=== PATIENT | male | born 1975 | race Caucasian/White ===

== ENCOUNTER 2023-10-27 08:29 | Outpatient (CLI) | payer MEDICAID, OTHER ==
[2023-10-27] MEDS ORDERED: iohexol 300mg/ml 100ml inj. ONE (08:37)
== END 2023-10-27 23:59 | disposition home or self-care (01) ==
LOC: RAD 08:29
PROVIDERS: ATTEND Internal Medicine Infectious Disease
DX: K65.1 Peritoneal abscess (principal); R19.09 Other intra-abdominal and pelvic swelling, mass and lump; Z98.890 Other specified postprocedural states
CPT/HCPCS: 72193; J3490; Q9967

== ENCOUNTER 2024-09-20 18:08 | Inpatient (IN) | payer MEDICAID, OTHER ==
[~2024-09-20] VITALS: Ht 188 cm; Wt 81.8 kg
[2024-09-20 19:12] LABS: BASOPHILS % (AUTO) 0.1 % (0-1); EOSINOPHILS % (AUTO) 0 % (0-6); HEMATOCRIT 37.4 % (42.0-52.0); HEMOGLOBIN 12.3 g/dl (14.0-17.9); LYMPHOCYTES # (AUTO) 1.3 X10'3 (1.1-4.8); LYMPHOCYTES % (AUTO) 8.1 % (21-51); MEAN CORPUSCULAR HGB CONC 32.9 g/dL (33.0-36.5); MEAN CORPUSCULAR VOLUME 81.9 FL (78-98); MEAN PLATELET VOLUME 7.4 FL (7.4-10.4); MONOCYTES # (AUTO) 1.6 X10'3 (0-0.9); MONOCYTES % (AUTO) 10.2 % (2-12); NEUTROPHILS % (AUTO) 81.6 % (42-75); PLATELET COUNT 242 X10'3 (140-440); RED BLOOD COUNT 4.57 X10'6 (4.70-6.10); RED CELL DISTRIBUTION WIDTH 17.7 % (11.5-14.5)
[2024-09-20 19:29] LABS: ALANINE AMINOTRANSFERASE 191 U/L (12-78); ALBUMIN 3.7 G/DL (3.4-5.0); ALKALINE PHOSPHATASE 188 IU/L (46-116); ANION GAP 7 (8-16); ASPARTATE AMINO TRANSFERASE 133 U/L (10-37); BILIRUBIN,TOTAL 1.7 MG/DL (0.1-1.0); BLOOD UREA NITROGEN 11 MG/DL (7-18); BUN/CREATININE RATIO 7.3 (10.0-20.0); CALCIUM 8.2 MG/DL (8.5-10.1); CHLORIDE 104 MMOL/L (99-107); GLUCOSE 108 MG/DL (70-104); POTASSIUM 3.7 MMOL/L (3.5-5.1); SODIUM 140 MMOL/L (135-145); TOTAL CARBON DIOXIDE 28.9 MMOL/L (24-32); TOTAL PROTEIN 7.4 G/DL (6.4-8.2); eCRCL 70 ML/MIN; eGFR 50 ML/MIN
[2024-09-20 19:33] LABS: PRO BRAIN NATRIURETIC PEPTIDE 1706 PG/ML (0-125)
[2024-09-20] MEDS ORDERED: AMLO5TAB16 (19:34)
[2024-09-20] MEDS ORDERED: OMEP40CA21 (19:34)
[2024-09-20] MEDS: normal saline 1000ML IV soln IV ONE (22:04)
[2024-09-20 22:13] LABS: LIPASE 23 U/L (16-77)
[2024-09-20] MEDS: metroNIDAZOLE-Flagyl 500mg/NS 100 ML IV STA (22:20)
[2024-09-20] MEDS ORDERED: acetaminophen 325mg tablet PO PRN (22:45)
[2024-09-20] MEDS ORDERED: magnesium hydroxide 30ml (MOM) UD suspension PO PRN (22:45)
[2024-09-20] MEDS ORDERED: mag hydrox/Alum hydrox/simeth 30ml oral suspension PO PRN (22:45)
[2024-09-20] MEDS ORDERED: magnesium Cl slow-release 64mg tablet PO PRN (22:45)
[2024-09-20] MEDS ORDERED: potassium Cl 40MEQ/1/2NS 520ml 520 ML IV PRN (22:45)
[2024-09-20] MEDS ORDERED: potassium Cl 20 mEq SR tablet PO PRN (22:45)
[2024-09-20] MEDS ORDERED: magnesium sulf-water 4G/100mL 100 ML IV PRN (22:45)
[2024-09-20] MEDS ORDERED: magnesium sulf-water 2g/50mL 50 ML IV PRN (22:45)
[2024-09-20] MEDS: PERFLUTREN PROTEIN-A MICROSPHR (Optison) 0.22 MG/ML 3ML VIAL IV ONE (22:55)
[2024-09-21] VITALS (11 sets, daily range): BP systolic 118–162; BP diastolic 74–91; PULSE 95–136; RESP 12–21; TEMP 97.5–99; O2SAT 94–99
[2024-09-21] MEDS: morphine 2 MG/ML inj. syringe IV PRN ×2 (00:12→14:24)
[2024-09-21] MEDS: ondansetron/PF 4mg/2ml inj IV PRN (00:12)
[2024-09-21] MEDS ORDERED: albuterol 1.25 MG/3 ML (1/2 strength) nebule NEB PRN (00:15)
[2024-09-21] MEDS: furosemide 10 MG/1 ML 10ml inj IV SCH (00:44)
[2024-09-21] MEDS: CefTRIAXone/D5W-Rocephin 1gm 50 ML IV SCH (00:44)
[2024-09-21 01:22] LABS: D-DIMER 0.29 MG/L FEU (0-0.50)
[2024-09-21 01:41] LABS: URINE AMPHETAMINE SCREEN NEGATIVE (Neg); URINE BARBITUATE SCREEN NEGATIVE (Neg); URINE BENZODIAZEPINES SCREEN NEGATIVE (Neg); URINE CANNABINOID SCREEN POSITIVE (Neg); URINE COCAINE SCREEN NEGATIVE (Neg); URINE METHADONE SCREEN NEGATIVE (Neg); URINE OPIATE SCREEN POSITIVE (Neg); URINE PHENCYCLIDINE SCREEN NEGATIVE (Neg)
[2024-09-21 02:22] LABS: BASOPHILS % (AUTO) 0.1 % (0-1); EOSINOPHILS % (AUTO) 0.1 % (0-6); HEMOGLOBIN 12.5 g/dl (14.0-17.9); LYMPHOCYTES # (AUTO) 1.1 X10'3 (1.1-4.8); LYMPHOCYTES % (AUTO) 8.1 % (21-51); MEAN CORPUSCULAR HEMOGLOBIN 26.4 PG (27.0-31.0); MEAN CORPUSCULAR HGB CONC 32.1 g/dL (33.0-36.5); MEAN CORPUSCULAR VOLUME 82.3 FL (78-98); MEAN PLATELET VOLUME 7.3 FL (7.4-10.4); MONOCYTES # (AUTO) 1.5 X10'3 (0-0.9); MONOCYTES % (AUTO) 10.6 % (2-12); NEUTROPHILS # (AUTO) 11.4 X10'3 (1.8-7.7); NEUTROPHILS % (AUTO) 81.1 % (42-75); PLATELET COUNT 241 X10'3 (140-440); RED BLOOD COUNT 4.74 X10'6 (4.70-6.10); RED CELL DISTRIBUTION WIDTH 17.8 % (11.5-14.5)
[2024-09-21] MEDS: ipratropium/albuterol 3ml nebule NEB SCH (02:28)
[2024-09-21 02:35] LABS: ALBUMIN 3.7 G/DL (3.4-5.0); ANION GAP 10 (8-16); BLOOD UREA NITROGEN 11 MG/DL (7-18); BUN/CREATININE RATIO 7.3 (10.0-20.0); CALCIUM 8.7 MG/DL (8.5-10.1); CHLORIDE 103 MMOL/L (99-107); GLUCOSE 126 MG/DL (70-104); MAGNESIUM 2.1 MG/DL (1.5-2.4); POTASSIUM 3.5 MMOL/L (3.5-5.1); SODIUM 140 MMOL/L (135-145); TOTAL CARBON DIOXIDE 26.9 MMOL/L (24-32); eCRCL 70 ML/MIN; eGFR 50 ML/MIN
[2024-09-21] MEDS: metroNIDAZOLE-Flagyl 500mg/NS 100 ML IV SCH (05:12)
[2024-09-21] MEDS: docusate sod 100mg capsule PO SCH (07:55)
[2024-09-21] MEDS: K and/or MAG REPLACEMENT MC SCH (08:00)
[2024-09-21] MEDS: morphine 2 MG/ML inj. syringe IV ONE (10:16)
[2024-09-21 10:55] LABS: ALANINE AMINOTRANSFERASE 171 U/L (12-78); ALBUMIN/GLOBULIN RATIO 0.9 (1.1-1.5); ALKALINE PHOSPHATASE 172 IU/L (46-116); ASPARTATE AMINO TRANSFERASE 86 U/L (10-37); BILIRUBIN,TOTAL 1.5 MG/DL (0.1-1.0); TOTAL PROTEIN 7.8 G/DL (6.4-8.2)
[2024-09-21] MEDS ORDERED: ipratropium/albuterol 3ml nebule NEB PRN (15:20)
[2024-09-21] MEDS: HYDROcodone/acetaminophen 5mg/325mg tablet PO PRN (19:44)
[2024-09-21] MEDS: heparin, porcine 5000 units/ml vial SQ SCH (19:46)
[2024-09-22 02:00] VITALS: BP 123/68; PULSE 81; RESP 19; TEMP 97.4; O2SAT 93
[2024-09-22 06:00] VITALS: BP 116/78; PULSE 103; RESP 19; TEMP 97.1; O2SAT 94
[2024-09-22 07:07] LABS: PROTHROMBIN TIME 10.9 SECONDS (9.0-12.0)
[2024-09-22 07:12] LABS: BASOPHILS % (AUTO) 0.3 % (0-1); EOSINOPHILS # (AUTO) 0.1 X10'3 (0-0.9); LYMPHOCYTES # (AUTO) 1.2 X10'3 (1.1-4.8); LYMPHOCYTES % (AUTO) 13.5 % (21-51); MEAN CORPUSCULAR HEMOGLOBIN 27.2 PG (27.0-31.0); MEAN CORPUSCULAR HGB CONC 33.2 g/dL (33.0-36.5); MEAN CORPUSCULAR VOLUME 81.9 FL (78-98); MEAN PLATELET VOLUME 7.9 FL (7.4-10.4); MONOCYTES % (AUTO) 11.4 % (2-12); NEUTROPHILS # (AUTO) 6.4 X10'3 (1.8-7.7); NEUTROPHILS % (AUTO) 73.8 % (42-75); PLATELET COUNT 219 X10'3 (140-440); RED CELL DISTRIBUTION WIDTH 17.9 % (11.5-14.5); WHITE BLOOD COUNT 8.6 X10'3 (4.5-11.0)
[2024-09-22 07:22] LABS: ALANINE AMINOTRANSFERASE 87 U/L (12-78); ALBUMIN 3.4 G/DL (3.4-5.0); ALBUMIN/GLOBULIN RATIO 0.8 (1.1-1.5); ALKALINE PHOSPHATASE 154 IU/L (46-116); ANION GAP 7 (8-16); ASPARTATE AMINO TRANSFERASE 28 U/L (10-37); BILIRUBIN,TOTAL 1.4 MG/DL (0.1-1.0); BLOOD UREA NITROGEN 18 MG/DL (7-18); BUN/CREATININE RATIO 12.9 (10.0-20.0); CHLORIDE 102 MMOL/L (99-107); GLUCOSE 93 MG/DL (70-104); MAGNESIUM 2.1 MG/DL (1.5-2.4); POTASSIUM 3.4 MMOL/L (3.5-5.1); SODIUM 136 MMOL/L (135-145); TOTAL CARBON DIOXIDE 27.3 MMOL/L (24-32); TOTAL PROTEIN 7.7 G/DL (6.4-8.2); eCRCL 75 ML/MIN; eGFR 54 ML/MIN
[2024-09-22] MEDS ORDERED: HYDR-3965 PO (08:16)
[2024-09-22] MEDS: potassium Cl 20 mEq SR tablet PO PRN (08:53)
[2024-09-22] MEDS: amLODIPine 5mg tablet PO SCH (08:53)
[2024-09-22 11:35] VITALS: BP 122/87; PULSE 103; RESP 15; TEMP 98.1; O2SAT 96
[2024-09-22] MEDS: PERFLUTREN PROTEIN-A MICROSPHR (Optison) 0.22 MG/ML 3ML VIAL IV ONE (12:57)
[2024-09-22 13:07] VITALS: PULSE 104; RESP 20; O2SAT 98
== END 2024-09-22 14:58 | disposition home or self-care (01) | DRG 194 ==
LOC: ER 18:09 → ED HOLD 22:49 → EDBEDREQDT 09-21 02:38 → EDBEDREQTM 09-21 02:38 → PCU 3S 09-21 03:50
PROVIDERS: ADMIT Internal Medicine Pulmonary Disease; ATTEND Internal Medicine
DX: I13.0 Hypertensive heart and chronic kidney disease with heart failure and stage 1 through stage 4 chronic kidney disease, or unspecified chronic kidney disease (principal); N17.0 Acute kidney failure with tubular necrosis; I50.9 Heart failure, unspecified; K80.10 Calculus of gallbladder with chronic cholecystitis without obstruction; R74.01 Elevation of levels of liver transaminase levels; D72.829 Elevated white blood cell count, unspecified; E80.6 Other disorders of bilirubin metabolism; N18.9 Chronic kidney disease, unspecified; K22.4 Dyskinesia of esophagus; Z88.0 Allergy status to penicillin; Z90.49 Acquired absence of other specified parts of digestive tract
CPT/HCPCS: 36415; 71045; 76700; 80053; 80305; 83605; 83690; 83735; 83880; 84484; 85025; 85379; 85610; 87040; 87081; 93005; 93306; 94640; 94760; 99291; A6258; G0378; J0696; J1644; J1940; J2270; J2405; J3490; J7030; Q9956